=== PATIENT | male | born 1980 | race Caucasian/White ===

== ENCOUNTER 2018-06-15 08:06 | Inpatient (IN) ==
[2018-06-15] MEDS ORDERED: Ondansetron 4 MG/2 ML VIAL IVP ONE ×2 (09:24→14:54)
[2018-06-15] MEDS ORDERED: *HR* FentaNYL (PF) 100 MCG/2 ML VIAL IVP ONE ×2 (09:24→12:05)
--- NOTE | 2018-06-15 09:28 | Emergency Department Note ---
Disposition Clinical Impression: Lip swelling, Cellulitis and abscess of face Disposition: Admitted As Inpatient Condition: Fair Time of Disposition: 12:50 General Adult HPI - General Chief complaint: ED Dental/Oral Stated complaint: Lip Swelling Time Seen by Provider: 06/15/18 08:11 Source: patient Mode of arrival: ambulatory Limitations: no limitations Nursing Notes Reviewed: Yes Vital Signs Reviewed: Yes - History of Present Illness HPI Narrative: Nontoxic-appearing 37-year-old male presents for evaluation of pain and swelling of the lower lip for the past 2 days. He states [place] when he was "poked by a honey locust thorn". He states that he removed the entire thorn intact. That evening he noticed some mild swelling and increased tenderness. Yesterday when he awoke, pain, swelling, and redness is worse. He complains of subjective fevers and chills as well as nausea throughout the day yesterday. Yesterday evening, he attempted to drain the lesion by way of "cutting it with a razor blade". He states he was able to express a small amount of purulent fluid. Today, the pain, swelling, and redness has worsened. Tetanus immunization status is up to date. Onset (ago): day(s) (2) Location: mouth Pain Scale: 8 Quality: aching Consistency: Worsening Improves with: nothing Worsens with: movement, other (Palpation) Associated symptoms: Reports: fever/chills, nausea/vomiting (Nausea without vomiting) Treatments Prior to Arrival: other - Related Data Home Medications Medication Instructions Recorded Confirmed No Known Home Drugs 06/15/18 06/15/18 Allergies Allergy/AdvReac Type Severity Reaction Status Date / Time escitalopram [From Lexapro] Allergy Agitated Verified 06/15/18 16:14 tramadol Allergy Seizure Verified 06/15/18 16:14 bupropion [From Wellbutrin] AdvReac See Verified 06/15/18 16:14 Comments All systems ED: reviewed and negative except as stated. Review of Systems: As Per HPI Constitutional: Reports: as per HPI, fever, chills. Denies: weakness, weight change Eyes: Denies: eye pain, eye discharge, vision change ENT ED: Denies: ear pain, throat pain, dental pain, hearing loss, epistaxis, congestion, dysphagia Cardiovascular: Denies: chest pain, palpitations, dyspnea on exertion, edema, syncope Respiratory: Denies: cough, dyspnea, wheezes, hemoptysis, stridor Gastrointestinal: Denies: abdominal pain, nausea, vomiting, diarrhea, constipation, hematemesis, melena, hematochezia Genitourinary: Denies: urgency, dysuria, frequency, hematuria Musculoskeletal: Denies: back pain, neck pain, arthralgia, myalgia Integumentary: Reports: as per HPI, other (Lower lip pain, swelling, redness). Denies: rash, abrasion, lesions Neurological: Denies: headache, weakness, numbness, paresthesias, confusion, abnormal gait, vertigo Psychiatric: Denies: anxiety, depression, suicidal thoughts, homicidal thoughts, auditory hallucinations, visual hallucinations Endocrine: Denies: fatigue Hematological/Lymphatic: Denies: easy bleeding, easy bruising Allergic/Immunologic: Denies: facial swelling, urticaria Past Medical History - Past Medical History Attestation: Yes The following information was validated with the patient. Source: patient, nursing notes reviewed Medical history: Reports: hypertension Psychiatric history: Reports: no psych history - Social History Smoking Status: Current every day smoker Smokeless Tobacco Status: No Alcohol use: Reports: none Drug use: Reports: marijuana Physical Exam - General Limitations: no limitations General appearance: alert, in no apparent distress - Head Head exam: atraumatic, normocephalic - Expanded Head Exam Head exam physicial: Present: other 1 - Moderate swelling of the lower lip. Diffuse induration without obvious palpable fluctuance. Moderate associated erythema. No discharge or drainage. 2 - Small well approximated incision site noted from where the patient attempted to drain the lesion yesterday. No discharge or drainage currently. - Eye Eye exam: Present: normal appearance, PERRL, EOMI. Absent: nystagmus - ENT ENT exam: mucous membranes moist - Expanded ENT Exam Nose/Mouth: 1 - site of today's incision and drainage. please see procedural note. incision did not cross the vermilion border - Neck Neck exam: Present: normal inspection, full ROM, trachea midline. Absent: tenderness, lymphadenopathy - Chest Chest inspection: Present: normal inspection, symmetric chest wall rise - Extremities Exam Extremities exam: Present: normal inspection, full ROM. Absent: tenderness, pedal edema - Neurological Exam Neurological exam: Present: alert, oriented X3 - Psychiatric Psychiatric exam: Present: normal affect, normal mood - Skin Skin exam: Present: warm, dry Course Course Narrative: 1203: I have paged Dr. Orosco, ENT for further recommendations. 1241: I been notified by the paging Center that they have attempted to page Dr. Orosco 3 times without success. 1248: I have discussed this patient's case with Dr. Michelle Worthy. Dr. Michelle Worthy recommends transfer to the [facility] for further management, as we are having difficulty in obtaining ENT consultation. The patient has been made aware of this plan and is in agreement. 1300: Dr. Orosco returned page. She recommends incision and drainage of the abscess and admission to the hospital service for IV antibiotics, however I had already had a discussion with the patient regarding transfer. The patient is agreeable to staying with ENT consultation here. Consultation had already been made to the [facility]. Immediately after talking to Dr. Orosco, I was contacted by the transfer center nurse, Emeka at the [facility]. She had spoken with Dr. Giraldo, gearman. Lizbeth stated that Dr. Giraldo insisted that we speak to our gearman p rior to transfer. I informed Lizbeth that I have just spoken with Dr. Orosco, and that the patient was comfortable staying here. 1510: I spoke with Dr. Reddy, hospitalist on-call who has agreed to accept the patient to the hospital service with ear nose and throat consult. I spoke with Dr. Bryant, infectious disease specialist. In particular, I spoke with him regarding the questionable need for antifungal's, given the patient was stuck by a honey [place]:. He states that at this time, we will refrain from antifungal's. He states that should the patient deteriorate or symptoms worsen in any way that the hospitalist can feel free to make a formal consult. Vital Signs Temperature 98.6 F 06/15/18 08:09 Pulse Rate 111 06/15/18 08:09 Respiratory Rate 16 06/15/18 08:09 Blood Pressure 155/88 06/15/18 08:09 O2 Sat by Pulse Oximetry 99 06/15/18 08:09 Temperature 98.6 F 06/15/18 09:06 Pulse Rate 111 06/15/18 09:06 Respiratory Rate 18 06/15/18 16:00 Blood Pressure 134/83 06/15/18 16:00 O2 Sat by Pulse Oximetry 99 06/15/18 09:06 Oxygen Delivery Oxygen Delivery Room Air Procedures - Abscess I/D Consent obtained: verbal consent Site: lip Side (if applicable): left Local Anesthetic: lidocaine 1% Amount of Anesthesia Used (mL): 2.0 Technique: incised with #11 blade Amount of fluid: 0 (Miniscule amount of purulent material expressed.) Complications: bleeding Medical Decision Making - Medical Records Medical records reviewed: Yes I reviewed the patient's medical records. - Lab Data Lab results reviewed: Yes I reviewed the patient's lab results. Lab results narrative: Lab Results 06/15/18 06/15/18 06/15/18 Range/Units 09:44 09:44 09:44 WBC 18.3 H (4.3-11.1) K/mcL RBC 4.83 (4.19-5.50) M/mcL Hgb 14.1 (12.9-16.9) g/dL Hct 42.3 (37.5-50.1) % MCV 87.6 (83.0-100.0) fL MCH 29.2 (28.0-33.3) pg MCHC 33.3 (31.6-35.5) g/dL RDW 12.6 (11.5-14.5) % Plt Count 206 (140-400) K/mcL MPV 10.4 (9.4-12.4) fL Immature Gran % 0.5 (0-4) % Seg Neutrophils % 81.5 % Lymphocytes % 6.0 % Monocytes % 11.7 % Eosinophils % 0.1 % Basophils % 0.2 % Neutrophils # 14.9 H (1.6-8.9) K/mcL Lymphocytes # 1.1 (0.6-4.6) K/mcL Monocytes # 2.1 H (0.0-1.3) K/mcL Eosinophils # 0.0 (0.0-0.6) K/mcL Basophils # 0.0 (0.0-0.2) K/mcL ESR 20 H (0-10) mm/hr Sodium 136 (136-145) mEq/L Potassium 3.6 (3.5-5.1) mEq/L Chloride 101 (98-107) mEq/L Carbon Dioxide 28 (23-29) mEq/L BUN 10 (6-20) mg/dL Creatinine 0.81 (0.70-1.30) mg/dL Est GFR ( Amer) > 60 (> 60) Est GFR (Non-Af Amer) > 60 (> 60) BUN/Creatinine Ratio 12 (6-26) Glucose 96 (70-105) mg/dL Calculated Osmolality 281 (280-300) Lactic Acid (0.5-2.2) mmol/L Calcium 9.0 (8.6-10.3) mg/dL C-Reactive Protein 90 H (Less than 10) mg/L 06/15/18 Range/Units 09:44 WBC (4.3-11.1) K/mcL RBC (4.19-5.50) M/mcL Hgb (12.9-16.9) g/dL Hct (37.5-50.1) % MCV (83.0-100.0) fL MCH (28.0-33.3) pg MCHC (31.6-35.5) g/dL RDW (11.5-14.5) % Plt Count (140-400) K/mcL MPV (9.4-12.4) fL Immature Gran % (0-4) % Seg Neutrophils % % Lymphocytes % % Monocytes % % Eosinophils % % Basophils % % Neutrophils # (1.6-8.9) K/mcL Lymphocytes # (0.6-4.6) K/mcL Monocytes # (0.0-1.3) K/mcL Eosinophils # (0.0-0.6) K/mcL Basophils # (0.0-0.2) K/mcL ESR (0-10) mm/hr Sodium (136-145) mEq/L Potassium (3.5-5.1) mEq/L Chloride (98-107) mEq/L Carbon Dioxide (23-29) mEq/L BUN (6-20) mg/dL Creatinine (0.70-1.30) mg/dL Est GFR ( Amer) (> 60) Est GFR (Non-Af Amer) (> 60) BUN/Creatinine Ratio (6-26) Glucose (70-105) mg/dL Calculated Osmolality (280-300) Lactic Acid 0.7 (0.5-2.2) mmol/L Calcium (8.6-10.3) mg/dL C-Reactive Protein (Less than 10) mg/L Result diagrams: 06/15/18 09:44 06/15/18 09:44 Lab Results 06/15/18 06/15/18 06/15/18 Range/Units 09:44 09:44 09:44 WBC 18.3 H (4.3-11.1) K/mcL RBC 4.83 (4.19-5.50) M/mcL Hgb 14.1 (12.9-16.9) g/dL Hct 42.3 (37.5-50.1) % MCV 87.6 (83.0-100.0) fL MCH 29.2 (28.0-33.3) pg MCHC 33.3 (31.6-35.5) g/dL RDW 12.6 (11.5-14.5) % Plt Count 206 (140-400) K/mcL MPV 10.4 (9.4-12.4) fL Immature Gran % 0.5 (0-4) % Seg Neutrophils % 81.5 % Lymphocytes % 6.0 % Monocytes % 11.7 % Eosinophils % 0.1 % Basophils % 0.2 % Neutrophils # 14.9 H (1.6-8.9) K/mcL Lymphocytes # 1.1 (0.6-4.6) K/mcL Monocytes # 2.1 H (0.0-1.3) K/mcL Eosinophils # 0.0 (0.0-0.6) K/mcL Basophils # 0.0 (0.0-0.2) K/mcL ESR 20 H (0-10) mm/hr Sodium 136 (136-145) mEq/L Potassium 3.6 (3.5-5.1) mEq/L Chloride 101 (98-107) mEq/L Carbon Dioxide 28 (23-29) mEq/L BUN 10 (6-20) mg/dL Creatinine 0.81 (0.70-1.30) mg/dL Est GFR ( Amer) > 60 (> 60) Est GFR (Non-Af Amer) > 60 (> 60) BUN/Creatinine Ratio 12 (6-26) Glucose 96 (70-105) mg/dL Calculated Osmolality 281 (280-300) Lactic Acid (0.5-2.2) mmol/L Calcium 9.0 (8.6-10.3) mg/dL C-Reactive Protein 90 H (Less than 10) mg/L 06/15/18 Range/Units 09:44 WBC (4.3-11.1) K/mcL RBC (4.19-5.50) M/mcL Hgb (12.9-16.9) g/dL Hct (37.5-50.1) % MCV (83.0-100.0) fL MCH (28.0-33.3) pg MCHC (31.6-35.5) g/dL RDW (11.5-14.5) % Plt Count (140-400) K/mcL MPV (9.4-12.4) fL Immature Gran % (0-4) % Seg Neutrophils % % Lymphocytes % % Monocytes % % Eosinophils % % Basophils % % Neutrophils # (1.6-8.9) K/mcL Lymphocytes # (0.6-4.6) K/mcL Monocytes # (0.0-1.3) K/mcL Eosinophils # (0.0-0.6) K/mcL Basophils # (0.0-0.2) K/mcL ESR (0-10) mm/hr Sodium (136-145) mEq/L Potassium (3.5-5.1) mEq/L Chloride (98-107) mEq/L Carbon Dioxide (23-29) mEq/L BUN (6-20) mg/dL Creatinine (0.70-1.30) mg/dL Est GFR ( Amer) (> 60) Est GFR (Non-Af Amer) (> 60) BUN/Creatinine Ratio (6-26) Glucose (70-105) mg/dL Calculated Osmolality (280-300) Lactic Acid 0.7 (0.5-2.2) mmol/L Calcium (8.6-10.3) mg/dL C-Reactive Protein (Less than 10) mg/L - Radiology Data Radiology results reviewed: Yes I reviewed the patient's radiology results. Soft Tissue Neck CT 06/15/18 10:03 IMPRESSION: 1. Multiloculated low-attenuation collection in the lower lip and premental soft tissues measuring 2.9 x 1.8 x 1.7 cm consistent with abscess and phlegmon. Cellulitis involving the lower lip and submandibular soft tissues, eccentric to the left. 2. Reactive cervical lymphadenopathy. D/ / 06/15/2018 12:01:02 Danisha Bloom MD / [facility] Interpreting Provider: Danisha Bloom MD
[2018-06-15] MEDS ORDERED: Clindamycin 600 MG/50 ML 600 MG/50 ML IV.SOLN IVPB STA (09:37)
[2018-06-15] MEDS ORDERED: Isovue-370 500 ML INFUS..BTL IV ONE (10:03)
[2018-06-15] MEDS ORDERED: Piperacillin/Tazobactam 3.375 GM in 0.9 % Sodium Chloride Mini Bag 100 ML IVPB ONE (10:03)
[2018-06-15 10:08] LABS: Basophils % 0.2 %; Eosinophils % 0.1 %; Hematocrit 42.3 % (37.5-50.1); Hemoglobin 14.1 g/dL (12.9-16.9); Immature Granulocytes % 0.5 % (0-4); Lymphocytes # 1.1 K/mcL (0.6-4.6); Mean Corpuscular HGB Conc 33.3 g/dL (31.6-35.5); Mean Corpuscular Hemoglobin 29.2 pg (28.0-33.3); Mean Corpuscular Volume 87.6 fL (83.0-100.0); Mean Platelet Volume 10.4 fL (9.4-12.4); Monocytes # 2.1 K/mcL (0.0-1.3); Monocytes % 11.7 %; Neutrophils # 14.9 K/mcL (1.6-8.9); Platelet Count 206 K/mcL (140-400); Red Blood Count 4.83 M/mcL (4.19-5.50); Red Cell Distribution Width 12.6 % (11.5-14.5); Segmented Neutrophils % 81.5 %
[2018-06-15 10:14] LABS: BUN/Creatinine Ratio 12 (6-26); Blood Urea Nitrogen 10 mg/dL (6-20); C-Reactive Protein 90 mg/L (Less than 10); Carbon Dioxide 28 mEq/L (23-29); Chloride 101 mEq/L (98-107); Glucose 96 mg/dL (70-105); Osmolality,Calculated 281 (280-300); Potassium 3.6 mEq/L (3.5-5.1); Sodium 136 mEq/L (136-145); eGFR For Non-African Americans > 60 (> 60)
--- NOTE | 2018-06-15 11:46 | Emergency Department Note ---
Disposition Clinical Impression: Lip swelling, Cellulitis and abscess of face Disposition: Admitted As Inpatient Condition: Fair Referrals: Tony Dobson MD [Primary Care Provider] - Forms: ED Satisfaction Letter General Adult HPI - General Chief complaint: ED Dental/Oral Stated complaint: Lip Swelling Time Seen by Provider: 06/15/18 08:11 Source: patient Mode of arrival: ambulatory Limitations: no limitations - History of Present Illness Location: mouth Pain Scale: 8 Quality: aching Improves with: nothing Worsens with: movement, other (Palpation) Associated symptoms: Reports: fever/chills, nausea/vomiting (Nausea without vomiting) Treatments Prior to Arrival: other - Related Data Allergies Allergy/AdvReac Type Severity Reaction Status Date / Time No Known Allergies Allergy Verified 06/15/18 08:11 Constitutional: Reports: as per HPI, fever, chills. Denies: weakness, weight change Eyes: Denies: eye pain, eye discharge, vision change ENT ED: Denies: ear pain, throat pain, dental pain, hearing loss, epistaxis, congestion, dysphagia Cardiovascular: Denies: chest pain, palpitations, dyspnea on exertion, edema, syncope Respiratory: Denies: cough, dyspnea, wheezes, hemoptysis, stridor Gastrointestinal: Denies: abdominal pain, nausea, vomiting, diarrhea, constipation, hematemesis, melena, hematochezia Genitourinary: Denies: urgency, dysuria, frequency, hematuria Musculoskeletal: Denies: back pain, neck pain, arthralgia, myalgia Integumentary: Reports: as per HPI, other (Lower lip pain, swelling, redness). Denies: rash, abrasion, lesions Neurological: Denies: headache, weakness, numbness, paresthesias, confusion, abnormal gait, vertigo Psychiatric: Denies: anxiety, depression, suicidal thoughts, homicidal thoughts, auditory hallucinations, visual hallucinations Endocrine: Denies: fatigue Hematological/Lymphatic: Denies: easy bleeding, easy bruising Allergic/Immunologic: Denies: facial swelling, urticaria Past Medical History - Past Medical History Medical history: Reports: hypertension Psychiatric history: Reports: no psych history - Social History Smoking Status: Current every day smoker Smokeless Tobacco Status: No Alcohol use: Reports: none Drug use: Reports: marijuana Physical Exam - General Limitations: no limitations General appearance: alert, in no apparent distress Course - Consultations Consultation #1: discussed with [facility] and Dr. Orosco and she will see patient as consult here. We have done the I/D with minimal drainage. Added decadron to the therapy. ADmit to medicine Time: 15:00 Vital Signs Temperature 98.6 F 06/15/18 08:09 Pulse Rate 111 06/15/18 08:09 Respiratory Rate 16 06/15/18 08:09 Blood Pressure 155/88 06/15/18 08:09 O2 Sat by Pulse Oximetry 99 06/15/18 08:09 Temperature 98.6 F 06/15/18 09:06 Pulse Rate 111 06/15/18 09:06 Respiratory Rate 16 06/15/18 09:06 Blood Pressure 155/88 06/15/18 09:06 O2 Sat by Pulse Oximetry 99 06/15/18 09:06 Oxygen Delivery Oxygen Delivery Room Air Medical Decision Making - Lab Data Result diagrams: 06/15/18 09:44 06/15/18 09:44 Lab Results 06/15/18 06/15/18 06/15/18 Range/Units 09:44 09:44 09:44 WBC 18.3 H (4.3-11.1) K/mcL RBC 4.83 (4.19-5.50) M/mcL Hgb 14.1 (12.9-16.9) g/dL Hct 42.3 (37.5-50.1) % MCV 87.6 (83.0-100.0) fL MCH 29.2 (28.0-33.3) pg MCHC 33.3 (31.6-35.5) g/dL RDW 12.6 (11.5-14.5) % Plt Count 206 (140-400) K/mcL MPV 10.4 (9.4-12.4) fL Immature Gran % 0.5 (0-4) % Seg Neutrophils % 81.5 % Lymphocytes % 6.0 % Monocytes % 11.7 % Eosinophils % 0.1 % Basophils % 0.2 % Neutrophils # 14.9 H (1.6-8.9) K/mcL Lymphocytes # 1.1 (0.6-4.6) K/mcL Monocytes # 2.1 H (0.0-1.3) K/mcL Eosinophils # 0.0 (0.0-0.6) K/mcL Basophils # 0.0 (0.0-0.2) K/mcL ESR 20 H (0-10) mm/hr Sodium 136 (136-145) mEq/L Potassium 3.6 (3.5-5.1) mEq/L Chloride 101 (98-107) mEq/L Carbon Dioxide 28 (23-29) mEq/L BUN 10 (6-20) mg/dL Creatinine 0.81 (0.70-1.30) mg/dL Est GFR ( Amer) > 60 (> 60) Est GFR (Non-Af Amer) > 60 (> 60) BUN/Creatinine Ratio 12 (6-26) Glucose 96 (70-105) mg/dL Calculated Osmolality 281 (280-300) Lactic Acid (0.5-2.2) mmol/L Calcium 9.0 (8.6-10.3) mg/dL C-Reactive Protein 90 H (Less than 10) mg/L 06/15/18 Range/Units 09:44 WBC (4.3-11.1) K/mcL RBC (4.19-5.50) M/mcL Hgb (12.9-16.9) g/dL Hct (37.5-50.1) % MCV (83.0-100.0) fL MCH (28.0-33.3) pg MCHC (31.6-35.5) g/dL RDW (11.5-14.5) % Plt Count (140-400) K/mcL MPV (9.4-12.4) fL Immature Gran % (0-4) % Seg Neutrophils % % Lymphocytes % % Monocytes % % Eosinophils % % Basophils % % Neutrophils # (1.6-8.9) K/mcL Lymphocytes # (0.6-4.6) K/mcL Monocytes # (0.0-1.3) K/mcL Eosinophils # (0.0-0.6) K/mcL Basophils # (0.0-0.2) K/mcL ESR (0-10) mm/hr Sodium (136-145) mEq/L Potassium (3.5-5.1) mEq/L Chloride (98-107) mEq/L Carbon Dioxide (23-29) mEq/L BUN (6-20) mg/dL Creatinine (0.70-1.30) mg/dL Est GFR ( Amer) (> 60) Est GFR (Non-Af Amer) (> 60) BUN/Creatinine Ratio (6-26) Glucose (70-105) mg/dL Calculated Osmolality (280-300) Lactic Acid 0.7 (0.5-2.2) mmol/L Calcium (8.6-10.3) mg/dL C-Reactive Protein (Less than 10) mg/L Attestation Statement - Attestation Attestation: I examined this patient and my medical decision-making was reviewed with the Resident Physician. I agree with the documented findings, disposition and treatment plan as described except to the extent set forth below. 37 year old male presents to the ED with complaints of lip swelling and states that this happened while he was putting up his deer stand and then a honey locust thorn entered his lower lip and now in the past 36 hours it has significtn swelling an starting to track down the left side of his face now. we will do IV and CT soft tissue and IV ABX for therapy and will admit
[2018-06-15] MEDS ORDERED: Lidocaine -MPF 1% 5 ML AMPUL INFILT ONE (14:26)
[2018-06-15] MEDS ORDERED: 0.9 % Sodium Chloride 1,000 ML IVC ONE (14:31)
[2018-06-15] MEDS ORDERED: *HR* HYDROmorphone (PF) 1 MG/ML SYRINGE IVP ONE (14:31)
[2018-06-15] MEDS ORDERED: Dexamethasone 4 MG/ML VIAL IVP ONE (14:58)
--- NOTE | 2018-06-15 16:50 | ENT - Consult Note ---
Date of Encounter: 06/15/18 Time of Encounter: 16:47 Assessment and Plan (1) Lip swelling Current Visit: Yes Status: Acute We will continue to monitor for improvement. Small amount of packing was placed but this will likely follow out on its own. Dressing changes to mental area when necessary. (2) Cellulitis and abscess of face Current Visit: Yes Status: Acute Lower lip was indeed a second time in the area of purulent drainage from the lower lip. Please see procedure note. CT scan was reviewed and shows that there is a possible abscess in the anterior lip anterior to the mandible in the submental area. There is no evidence of any extension of this in the submandibular space and there is some slight soft tissue swelling in the submandibular area but there is no extrusion of the tongue or displacement of the soft tissue to compromise of the airway. Recommend admission for IV antibiotics and continued IV steroids. Would recommend Decadron 20 mg IV every 8 hours. This was discussed with the ER staff that was previously treating the patient. Also recommend ID consult for recommendations on the antibiotics and possible antifungal coverage if they believe this is necessary. Patient did have injury from a Thorn that was stuck in the lower lip. At the current time and airway is stable with no evidence of Lucio's Angina on examination at the present time. History of Present Illness Consult date: 06/15/18 Reason for ENT Consult: other (Facial abscess) Requesting physician: Ingrid Worthy History of present illness: Patient is a 37-year-old male that presented to the emergency department secondary to increased swelling of the lower lip. Apparently patient was walking was and had a honey locus thorn See the lip. Thorn was removed. Patient began to have progressive swelling of the lower lip. Swelling became so bad that he did luis the lip himself yesterday afternoon and did get some pus from the lip but it continued to worsen. Patient then presented to the ER for further evaluation and treatment. ENT was consult to by the emergency room staff secondary to the size of the abscess and continued cellulitis that extended down into the neck and submandibular area. CT scan was performed which showed a 2 cm abscess of the lip extending into the premenstrual area. Also soft tissue swelling in the submandibular areas. Airway was patent on scan. Patient denies any dysphasia, no shortness of breath, no dyspnea. Past Med Surg Social Fam HX - Past Medical History Medical history: hypertension Psychiatric history: no psych history - Social History Smoking Status: Current every day smoker Smokeless Tobacco Status: No Alcohol use: none Drug use: marijuana Medications and Allergies No Known Home Drugs 06/15/18 [History] Allergy/AdvReac Type Severity Reaction Status Date / Time escitalopram [From Lexapro] Allergy Agitated Verified 06/15/18 16:14 tramadol Allergy Seizure Verified 06/15/18 16:14 bupropion [From Wellbutrin] AdvReac See Verified 06/15/18 16:14 Comments ENT - ROS - Constitutional Constitutional ROS: no fever(s), no headache(s), no lethargy - EENT Nose, mouth and throat: lip swelling, other (Lip pain, lip swelling), no dysphagia, no sore throat, no throat swelling, no tongue swelling - Cardiovascular Cardiovascular ROS IM: no chest pain, no chest pain at rest, no chest pain with activity, no dyspnea, no edema, no irregular heart rhythm, no radiating jaw, n susy or arm pain, no lightheadedness, no orthopnea, no paroxysmal nocturnal dyspnea, no syncope - Respiratory no cough, no dyspnea, no hemoptysis, no dyspnea on exertion, no wheezing, no stridor - Gastrointestinal Gastrointestinal: no nausea, no vomiting - Neurological Neurological ROS: no numbness, no syncope, no tingling, no weakness ENT Exam Initial Vital Signs Temp Pulse Resp BP Pulse Ox 98.6 F 111 16 155/88 99 06/15/18 08:09 06/15/18 08:09 06/15/18 08:09 06/15/18 08:09 06/15/18 08:09 - General physical appearance well developed, well nourished, moderate distress - Eyes PERRL, normal ocular movement - ENT normal pinna, normal nares, Other (Significant induration of the lower lip with central fluctuance and purulent from [place] area the anterior red lip. Induration measured approximately 5 cm. States he gets soft tissue swelling of the left face into the buccal mucosa, floor mouth is soft mucous membranes are moist no protrusion of the tongue) - Neck no masses, trachea midline, no lymphadectomy, other (Subtle Induration in the submandibular area as there is not tight red) - Respiratory normal expansion, normal respiratory effort - Neurologic CN 2-12 grossly intact, normal sensation, other (Responds appropriately) - Psychiatric oriented to time, oriented to person, oriented to place, speech is normal Exam Initial Vital Signs Temp Pulse Resp BP Pulse Ox 98.6 F 111 16 155/88 99 06/15/18 08:09 06/15/18 08:09 06/15/18 08:09 06/15/18 08:09 06/15/18 08:09 Results - Labs 06/15/18 09:44 06/15/18 09:44 Abnormal lab results WBC 18.3 K/mcL (4.3-11.1) H 06/15/18 09:44 Neutrophils # 14.9 K/mcL (1.6-8.9) H 06/15/18 09:44 Monocytes # 2.1 K/mcL (0.0-1.3) H 06/15/18 09:44 ESR 20 mm/hr (0-10) H 06/15/18 09:44 C-Reactive Protein 90 mg/L (Less than 10) H 06/15/18 09:44 Diabetes panel 06/15/18 Range/Units 09:44 Sodium 136 (136-145) mEq/L Potassium 3.6 (3.5-5.1) mEq/L Chloride 101 (98-107) mEq/L Carbon Dioxide 28 (23-29) mEq/L BUN 10 (6-20) mg/dL Creatinine 0.81 (0.70-1.30) mg/dL Glucose 96 (70-105) mg/dL Calcium 9.0 (8.6-10.3) mg/dL Calcium panel 06/15/18 Range/Units 09:44 Calcium 9.0 (8.6-10.3) mg/dL Pituitary panel 06/15/18 Range/Units 09:44 Sodium 136 (136-145) mEq/L Potassium 3.6 (3.5-5.1) mEq/L Chloride 101 (98-107) mEq/L Carbon Dioxide 28 (23-29) mEq/L BUN 10 (6-20) mg/dL Creatinine 0.81 (0.70-1.30) mg/dL Glucose 96 (70-105) mg/dL Calcium 9.0 (8.6-10.3) mg/dL Adrenal panel 06/15/18 Range/Units 09:44 Sodium 136 (136-145) mEq/L Potassium 3.6 (3.5-5.1) mEq/L Chloride 101 (98-107) mEq/L Carbon Dioxide 28 (23-29) mEq/L BUN 10 (6-20) mg/dL Creatinine 0.81 (0.70-1.30) mg/dL Glucose 96 (70-105) mg/dL Calcium 9.0 (8.6-10.3) mg/dL All other labs normal. Consult Discharge Plan - Plan Referrals: Tony Dobson MD [Primary Care Provider] -
--- NOTE | 2018-06-15 17:04 | ENT - Procedure Note ---
Date of procedure: 06/15/18 Pre-op diagnosis: Lip abscess Post-op diagnosis: same Procedure: Procedure: Incision and drainage of the lower lip abscess Indications for procedure. Patient is a 37-year-old gentleman that had an injury to the lower lip for a any sore Ashvin was stuck in and lip after traveling to the [place]. Patient had progressive swelling and abscess formation as visualized on a CT scan with subsequent swelling that extended into the skin of the submandibular area and midface on the left. Procedure in detail: Risks, benefits, alternatives to this procedure were discussed with the patient in the room. Verbal consent was obtained. 5 mL of 1% lidocaine plain was injected in the submental area with attention paid to inject over the mental nerves where they accepted mandible anteriorly to help create a block to the lower lip. Time was given to allow anesthesia as well as vasoconstriction of this area. At this point a 11 blade was then used to make a stab incision in the area where the abscess of come to a head and there was a small amount of purulent purulence draining from this site. After consideration was made a hemostat was used to open up any loculations through the stab incision. Presents was obtained and culture was taken. Small amount of half- inch iodoform gauze was then placed within the I&D site. This was taped to this skin of the chin and a 4 x 4 gauze was taped over this. Patient tolerated the procedure well. Anesthesia: local Surgeon: Raine Orosco Was there an printing assistant present: No Estimated blood loss (cc): 5
[2018-06-15] MEDS ORDERED: Naloxone 0.4 MG/ML INJ IVP PRN (17:42)
[2018-06-15] MEDS: Ketorolac 30 MG/ML VIAL IVP SCH (17:58)
--- NOTE | 2018-06-15 20:54 | Internal Med History&Physical ---
Date of Encounter: 06/15/18 Time of Encounter: 19:00 Internal Medicine - H&P: HPI Chief complaint: Cellulitis/abscess of the lower lip. Admitted From: Home Plans for Post Hospital Care: Home History of present illness: The patient is a 37-year-old male. It is about 2 days ago when a honey locus thorn pierced his lower lip. It happened, when he was walking in [place]. The thorn was removed. Subsequently, he developed progressing swelling and pain in that area. It was yesterday afternoon, when he lanced the lip himself; got some pus coming. Then, he came to our emergency room for evaluation and treatment. ENT consult was requested. The specialist did incision and drainage of the abscess in the lower lip. The patient has not had any fever or chills recently. Denies chest pain. Denies difficulty breathing. He has not developed any generalized rash secondary to the lesion mentioned above. PAST MEDICAL HX: He was diagnosed with hypertension in the past; does not take any medications for that. PAST FAMILY HX: Positive for hypertension. PAST SOCIAL HX: See below.. REVIEW OF SYSTEMS: All 14 organ systems were reviewed by me with the patient. Positive and pertinent negative findings are listed above. The rest of organ systems is negative. PHYSICAL EXAM: Skin: Free of rash and discoloration. There is quite extensive swelling of his lower lip. There are 2 small cuts in that area; that draining only very small amount of serosanguineous discharge. Eyes: Sclera is white. There is no discharge from eyes. ENMT: Oral/pharyngeal mucosa is normal in appearance. There is no discharge from nose or ears. Respiratory: Normal breath sounds with no crackles and wheezes bilaterally. CV: Heart is regular with no gallop or murmur. GI: Abdomen is flat and soft with no palpable mass or visceromegaly. : There is no tenderness in patient's flanks bilaterally. Neuro exam: He has good strength in upper and lower extremities. He has normal eye movements. Psychiatric: He has normal affect. His thought process is appropriate to the situation. ADDITIONAL DATA: Hemoglobin is 14.1 with a WBC of 18.3 thousand and platelet count of 206,000. He has normal BMP. CRP is 90. CT of head/neck was obtained. It showed multiloculated low-attenuation collection in the lower lip and pre-mental soft tissues measuring 2.9 x 1.8 x 1.7 cm consistent with abscess and phlegmon. It showed cellulitis involving the lower lip and submandibular soft tissues eccentric to the left. It showed reactive cervical lymphadenopathy. A/P: Abscess/cellulitis of lower lip area secondary to piercing with a piece of th orn. See ENT consult. See ENT procedure description. The patient got 1 dose of IV clindamycin. Infectious diseases advised the emergency room physician treatment with IV vancomycin and IV Zosyn at this time. Blood cultures and cultures from the abscess area have been taken. We will keep him on scheduled IV Toradol and when necessary Percocet. History of hypertension. We will be watching his blood pressure closely. Past Med Surg Social Fam HX - Past Medical History Medical history: hypertension Psychiatric history: anxiety, bipolar - Past Surgical History Surgical History: vasectomy - Social History Smoking Status: Current every day smoker Packs per day: 0.25 Smokeless Tobacco Status: No Alcohol use: none Drug use: marijuana Internal Medicine - H&P: Meds No Known Home Drugs 06/15/18 [History] Allergy/AdvReac Type Severity Reaction Status Date / Time escitalopram [From Lexapro] Allergy Agitated Verified 06/15/18 16:14 tramadol Allergy Seizure Verified 06/15/18 16:14 bupropion [From Wellbutrin] AdvReac See Verified 06/15/18 16:14 Comments - Constitutional Vitals: Temp Pulse Resp BP Pulse Ox 97.9 F 105 16 139/102 96 06/15/18 18:24 06/15/18 18:24 06/15/18 18:24 06/15/18 18:24 06/15/18 18:24 General appearance: Present: A&O X 3, no acute distress, answers questions appropriately Exam: xx Internal Med - H&P Results - Labs CBC & Chem 7: 06/15/18 09:44 06/15/18 09:44 Labs: Short CBC 06/15/18 Range/Units 09:44 WBC 18.3 H (4.3-11.1) K/mcL Hgb 14.1 (12.9-16.9) g/dL Hct 42.3 (37.5-50.1) % Plt Count 206 (140-400) K/mcL Neutrophils # 14.9 H (1.6-8.9) K/mcL BMP 06/15/18 09:44 Sodium 136 Potassium 3.6 Chloride 101 Carbon Dioxide 28 BUN 10 Creatinine 0.81 Glucose 96 Calcium 9.0 - Impressions ITS Impressions Soft Tissue Neck CT 06/15/18 10:03 IMPRESSION: 1. Multiloculated low-attenuation collection in the lower lip and premental soft tissues measuring 2.9 x 1.8 x 1.7 cm consistent with abscess and phlegmon. Cellulitis involving the lower lip and submandibular soft tissues, eccentric to the left. 2. Reactive cervical lymphadenopathy. D/ / 06/15/2018 12:01:02 Danisha Bloom MD / [facility] Interpreting Provider: Danisha Bloom MD - Assessment and plan (1) Cellulitis and abscess of face Current Visit: Yes Status: Acute (2) Hx of primary hypertension Current Visit: Yes Status: Inactive - Time Spent With Patient Total time spent is greater than 50% in coordination of care (as documented) at patient's floor/unit and/or counseling patient: 25 - 35 minutes
[2018-06-15] MEDS: Piperacillin/Tazobactam 3.375 GM in 0.9 % Sodium Chloride Mini Bag 100 ML IVPB SCH (21:58)
[2018-06-15] MEDS: *HR* OxyCODONE/APAP 5/325 TABLET PO PRN (22:06)
[2018-06-16] MEDS: Ketorolac 30 MG/ML VIAL IVP SCH ×3 (00:58→12:16)
[2018-06-16] MEDS: *HR* OxyCODONE/APAP 5/325 TABLET PO PRN ×3 (03:04→12:10)
[2018-06-16] MEDS: Piperacillin/Tazobactam 3.375 GM in 0.9 % Sodium Chloride Mini Bag 100 ML IVPB SCH (06:15)
[2018-06-16 12:23] VITALS: BP 115/77
--- NOTE | 2018-06-16 22:51 | Discharge Summary ---
- NOTES TO OUTPATIENT PROVIDER Notes to Outpatient Provider: The patient walked out without any discharge papers/orders. Orders not resulted at time of discharge: Pending orders 06/15/18 09:23 Culture,Blood [BC] Stat 06/15/18 14:30 Culture,Anaerobic [RM] Stat Culture,Body Fluid [RM] Stat Fungal Culture [MYC] Stat Date of Encounter: 06/16/18 Time of Encounter: 11:00 - Discharge Diagnosis (1) Cellulitis and abscess of face Priority: Primary Status: Acute (2) Hx of primary hypertension Priority: Secondary Status: Suspected Hospital course: The patient is a 37-year-old male. I admitted him yesterday with abscess/cellulitis of lower lip. It originated at the time of preaking of his face with a thorn. It was about 2 days before this admission, when he was in [facility]. He had an incision and drainage in the emergency departmentby an ENT specialist. We put him on IV vancomycin and IV Zosyn. We obtained a culture from the wound. When I was doing my morning rounds, I found him to have decreased swelling of his lower lip area. He agrees to stay longer in the hospital to get necessary treatments. Then, suddenly he walked out without any papers/orders from me/nursing staff. Discharge discussed with: other (The patient walked out without any discharge papers/orders.) - Time Spent with Patient Total time spent providing and/or coordinating discharge services: Less than 30 minutes - Discharge Medications Home Medications: No Known Home Drugs 06/15/18 [History] Allergies/Adverse Reactions: Allergy/AdvReac Type Severity Reaction Status Date / Time escitalopram [From Lexapro] Allergy Agitated Verified 06/15/18 16:14 tramadol Allergy Seizure Verified 06/15/18 16:14 bupropion [From Wellbutrin] AdvReac See Verified 06/15/18 16:14 Comments Date of admission: 06/15/18 15:21 Primary care physician: Tony Dobson MD Consults: 06/15/18 14:52 Consult to ENT [CONS] Stat Consulting Provider: ENT Sherita Reason for Consult: lower lip cellulitis/phlegmon Time Notified: 14:53 Call Completed: Yes Discharging clinician: José Srinivasan Anticipated date of discharge: 06/16/18 - Constitutional Vitals: Temp Pulse Resp BP Pulse Ox 98.0 F 86 16 115/77 98 06/16/18 12:21 06/16/18 12:21 06/16/18 12:21 06/16/18 12:21 06/16/18 12:21 General appearance: Present: A&O X 3, no acute distress, answers questions appropriately Exam: xx - Patient Status Disposition: Home, Self-Care Condition: Fair Functional capacity at discharge: independent ambulation Overall status at discharge: patient is progressing back to baseline - Discharge Instructions Follow Up With: Tony Dobson MD [Primary Care Provider] - - Diet and Activity Activity: resume usual activities as tolerated Diet: regular diet - VTE Reasons for not Prescribing Prophylaxis: Treatment not Indicated - Low risk for VTE Deep Vein Thrombosis/Pulmonary Embolism Present on Admission: No
== END 2018-06-16 13:00 | disposition home or self-care (01) | DRG 98 ==
LOC: EMEROOARM 08:06 → 2ANU 15:21 → SUATTDRO 15:21 → 2ANU 17:10
PROVIDERS: ADMIT Internal Medicine; ATTEND Internal Medicine

== ENCOUNTER 2018-06-17 15:10 | Observation (INO) ==
--- NOTE | 2018-06-17 15:32 | Emergency Department Note ---
Disposition Clinical Impression: Cellulitis and abscess of face, Lip swelling Disposition: Admitted As Inpatient Condition: Fair Skin/Abscess/FB HPI Stated complaint: Lip Infection Time Seen by Provider: 06/17/18 15:15 Source: patient Mode of arrival: ambulatory Limitations: no limitations Vital Signs Reviewed: Yes HPI Narrative: Wilmer is a 37 year old male with a past medical history significant for hypertension who presents with chief complaint of lip abscess. History comes primarily from patient. Wilmer was walking in the [place] 4 days ago when he strayed into a thornbush. A thorn pierced his lower lip to the left of midline and broke off into the wound. He extracted this foreign body and attempted to clean the area at home. However over the next 24 hours the affected area became progressively more tender and edematous with exudative discharge from the puncture site. at 48 hours s/p injury he presented to [facility] ED for further evaluation and treatment. At that time he was given IV clindamycin, and his lesion was I/D'd by ENT in the ED. He was then admitted under the hospitalist service for continuation of IV antibiotics (Vanc/Zosyn). He then became aware of a conflict developing between his current significant other and his ex-, so he left AMA the morning after admission to address that issue. Upon satisfactorily resolving this social concern, he returned to [facility] for contin uation of his antibiotic therapy. He endorses subjective fever, chills and night sweats in the interval period after leaving AMA, and he states that he will not leave until his care team directs him for discharge upon being admitted this time. Pt Subjective Complaint: abscess/boil Onset (ago): day(s) Tetanus Up to Date: yes Location: face Severity: moderate Quality: aching, constant Consistency: constant Improves with: none Worsens with: movement Treatments prior to arrival: attempted to drain pus at home Home Medications Medication Instructions Recorded Confirmed RX: No Known Home Drugs 06/15/18 06/17/18 Allergies Allergy/AdvReac Type Severity Reaction Status Date / Time escitalopram [From Lexapro] Allergy Agitated Verified 06/15/18 16:14 tramadol Allergy Seizure Verified 06/15/18 16:14 bupropion [From Wellbutrin] AdvReac See Verified 06/15/18 16:14 Comments Constitutional: Reports: fever, chills, night sweats. Denies: weakness, weight change Eyes: Denies: eye pain ENT ED: Reports: throat pain. Denies: ear pain, dental pain, dysphagia Cardiovascular: Denies: chest pain Respiratory: Denies: as per HPI, cough, dyspnea, sputum production Gastrointestinal: Denies: abdominal pain, nausea, vomiting Neurological: Denies: headache, weakness, numbness Past Medical History - Past Medical History Medical history: Reports: hypertension Surgical history: Reports: vasectomy Psychiatric history: Reports: anxiety, bipolar - Social History Smoking Status: Current every day smoker Smokeless Tobacco Status: No Alcohol use: Reports: none Drug use: Reports: marijuana Physical Exam - General Limitations: no limitations General appearance: alert, in no apparent distress - Head Head exam: atraumatic, normocephalic, normal inspection - Eye Eye exam: Present: normal appearance, PERRL, EOMI - ENT ENT exam: normal oropharynx, other (Obviously infected puncture wound of external left lateral lower lip. Some granulomatous chagnes noted along reciprocal inner mucosal surface. ) - Neck Neck exam: Present: tenderness, other (TTP noted along left body and ramus of mandible extending into soft tissue of anterior cervical region of neck. Submental region is soft and nontender. ). Absent: lymphadenopathy - Chest Chest inspection: Present: normal inspection, symmetric chest wall rise - Respiratory Respiratory exam: Present: normal lung sounds bilaterally. Absent: respiratory distress - Cardiovascular Cardiovascular exam: Present: regular rate, normal rhythm, normal heart sounds. Absent: systolic murmur, rubs - Abdominal Exam Abdominal exam: Present: soft, Non-Tender. Absent: tenderness, distention, guarding, rebound, rigidity - Neurological Exam Neurological exam: Present: alert, oriented X3, CN II-XII intact - Psychiatric Psychiatric exam: Present: normal affect, normal mood Course Course Narrative: Patient's lab results reveal interval improvement of WBC and CRP counts, however both remain elevated and he remains in an obvious clinically infected state. Patient discussed with admitting hospitalist service, who have agreed to dwaine-admit Wilmer Handy for continue IV antibiotic therapy. This plan of care was discussed with the patient who understands the plan of care and is amenable. Vital Signs Temperature 98.0 F 06/17/18 15:25 Pulse Rate 101 06/17/18 15:25 Respiratory Rate 16 06/17/18 15:25 Blood Pressure 150/92 06/17/18 15:25 O2 Sat by Pulse Oximetry 100 06/17/18 15:25 Temperature 98.0 F 06/17/18 15:25 Pulse Rate 101 06/17/18 15:25 Respiratory Rate 16 06/17/18 15:25 Blood Pressure 150/92 06/17/18 15:25 O2 Sat by Pulse Oximetry 100 06/17/18 15:25 Oxygen Delivery Oxygen Delivery Room Air Skin/Abscess/Foreign Body - Lab Data Result diagrams: 06/17/18 16:22 06/17/18 16:22 Lab Results 06/17/18 06/17/18 06/17/18 Range/Units 16:22 16:22 16:22 WBC 12.0 H (4.3-11.1) K/mcL RBC 4.84 (4.19-5.50) M/mcL Hgb 14.0 (12.9-16.9) g/dL Hct 42.8 (37.5-50.1) % MCV 88.4 (83.0-100.0) fL MCH 28.9 (28.0-33.3) pg MCHC 32.7 (31.6-35.5) g/dL RDW 13.1 (11.5-14.5) % Plt Count 282 (140-400) K/mcL MPV 10.5 (9.4-12.4) fL Immature Gran % 0.3 (0-4) % Seg Neutrophils % 71.7 % Lymphocytes % 18.3 % Monocytes % 8.6 % Eosinophils % 0.8 % Basophils % 0.3 % Neutrophils # 8.6 (1.6-8.9) K/mcL Lymphocytes # 2.2 (0.6-4.6) K/mcL Monocytes # 1.0 (0.0-1.3) K/mcL Eosinophils # 0.1 (0.0-0.6) K/mcL Basophils # 0.0 (0.0-0.2) K/mcL Sodium 138 (136-145) mEq/L Potassium 3.6 (3.5-5.1) mEq/L Chloride 104 (98-107) mEq/L Carbon Dioxide 25 (23-29) mEq/L BUN 17 (6-20) mg/dL Creatinine 0.83 (0.70-1.30) mg/dL Est GFR ( Amer) > 60 (> 60) Est GFR (Non-Af Amer) > 60 (> 60) BUN/Creatinine Ratio 20 (6-26) Glucose 121 H (70-105) mg/dL Calculated Osmolality 289 (280-300) Lactic Acid 1.5 (0.5-2.2) mmol/L Calcium 8.9 (8.6-10.3) mg/dL C-Reactive Protein 73 H (Less than 10) mg/L
[2018-06-17] MEDS ORDERED: Piperacillin/Tazobactam 3.375 GM in Water for inj. (sterile) 20 ML 20 ML IVP ONE (15:46)
[2018-06-17] MEDS ORDERED: *HR* FentaNYL (PF) 100 MCG/2 ML VIAL IVP ONE (15:46)
--- NOTE | 2018-06-17 16:04 | Emergency Department Note ---
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 HAZEL ARAGON I have personally performed a face to face evaluation on this patient. I have reviewed and agree with history and physical examination patient management and disposition. Briefly the salient points of the case are as follows: 37-year-old male denying IV drug use walking in the [place] several days ago struck in the lower lip with a foreign from a push noticed pain and redness and swelling. Presented 2 days ago [facility] was worked up with consult on by ENT who did not I&D on his lower lip and admitted for IV antibiotics. Due to social issues patient had a signout AMA. He returned today with some increased pain and swelling and stated definitively that he will stay this time for treatment. Patient getting repeat labs will then contact the hospitalist for admission patient is some mild soft tissue swelling and tenderness with induration on his lower lip but there is no involvement of the pretracheal or submental spaces. There is no airway compromise no trismus no dysphonia or dysphagia. Sporotrichosis is in the differential. Pain Scale: 7 - Related Data Home Medications Medication Instructions Recorded Confirmed No Known Home Drugs 06/15/18 06/17/18 Allergies Allergy/AdvReac Type Severity Reaction Status Date / Time escitalopram [From Lexapro] Allergy Agitated Verified 06/15/18 16:14 tramadol Allergy Seizure Verified 06/15/18 16:14 bupropion [From Wellbutrin] AdvReac See Verified 06/15/18 16:14 Comments Constitutional: Reports: fever, chills, night sweats. Denies: weakness, weight change Eyes: Denies: eye pain ENT ED: Reports: throat pain. Denies: ear pain, dental pain Past Medical History - Past Medical History Medical history: Reports: hypertension Surgical history: Reports: vasectomy Psychiatric history: Reports: anxiety, bipolar - Social History Smoking Status: Current every day smoker Smokeless Tobacco Status: No Alcohol use: Reports: none Drug use: Reports: marijuana Physical Exam - General Limitations: no limitations General appearance: alert, in no apparent distress Course Vital Signs Temperature 98.0 F 06/17/18 15:25 Pulse Rate 101 06/17/18 15:25 Respiratory Rate 16 06/17/18 15:25 Blood Pressure 150/92 06/17/18 15:25 O2 Sat by Pulse Oximetry 100 06/17/18 15:25 Temperature 98.0 F 06/17/18 15:25 Pulse Rate 101 06/17/18 15:25 Respiratory Rate 16 06/17/18 15:25 Blood Pressure 150/92 06/17/18 15:25 O2 Sat by Pulse Oximetry 100 06/17/18 15:25 Oxygen Delivery Oxygen Delivery Room Air
[2018-06-17 16:42] LABS: Basophils % 0.3 %; Eosinophils # 0.1 K/mcL (0.0-0.6); Eosinophils % 0.8 %; Hematocrit 42.8 % (37.5-50.1); Immature Granulocytes % 0.3 % (0-4); Lymphocytes # 2.2 K/mcL (0.6-4.6); Lymphocytes % 18.3 %; Mean Corpuscular HGB Conc 32.7 g/dL (31.6-35.5); Mean Corpuscular Hemoglobin 28.9 pg (28.0-33.3); Mean Corpuscular Volume 88.4 fL (83.0-100.0); Mean Platelet Volume 10.5 fL (9.4-12.4); Monocytes % 8.6 %; Neutrophils # 8.6 K/mcL (1.6-8.9); Platelet Count 282 K/mcL (140-400); Red Blood Count 4.84 M/mcL (4.19-5.50); Red Cell Distribution Width 13.1 % (11.5-14.5); Segmented Neutrophils % 71.7 %
[2018-06-17 17:01] LABS: BUN/Creatinine Ratio 20 (6-26); Blood Urea Nitrogen 17 mg/dL (6-20); C-Reactive Protein 73 mg/L (Less than 10); Calcium 8.9 mg/dL (8.6-10.3); Carbon Dioxide 25 mEq/L (23-29); Chloride 104 mEq/L (98-107); Glucose 121 mg/dL (70-105); Osmolality,Calculated 289 (280-300); Potassium 3.6 mEq/L (3.5-5.1); Sodium 138 mEq/L (136-145); eGFR For Non-African Americans > 60 (> 60)
[2018-06-17] MEDS ORDERED: Naloxone 0.4 MG/ML INJ IVP PRN (17:52)
--- NOTE | 2018-06-17 18:37 | Internal Med History&Physical ---
Date of Encounter: 06/17/18 Time of Encounter: 18:00 Internal Medicine - H&P: HPI Chief complaint: Pain/swelling of lower lip Admitted From: Home Plans for Post Hospital Care: Home History of present illness: The patient is a 37-year-old male. He was hospitalized here recently for treatment of lower lip abscess/cellulitis resulting from piercing his face with a thorn. ENT did incision and drainage of the abscess. We put him on IV vancomycin/IV Zosyn. The patient left AMA on the very next day after the admission, yesterday. He came to emergency room today complaining of severe pain in the area of his lower lip; did not get any pain killers when leaving the hospital. The swelling seems to be a low bit better. He reports to me a low bit of drainage from driss site. Denies fever and chills. PAST MEDICAL HX: He was diagnosed with hypertension in the near past; it was noted treated by him. PAST FAMILY HX: See below.. PAST SOCIAL HX: See below.. REVIEW OF SYSTEMS: All 14 organ systems were reviewed by me with the patient. Positive and pertinent negative findings are listed above. The rest of organ systems is negative. PHYSICAL EXAM: Skin: Free of rash and discoloration. There is a moderate swelling of his lower lip. The interior portion of his lower lip is showing grayish discoloration. Eyes: Sclera is white. There is no discharge from eyes. ENMT: Oral/pharyngeal mucosa is normal in appearance. There is no discharge from nose or ears. Respiratory: Normal breath sounds with no crackles and wheezes bilaterally. CV: Heart is regular with no gallop or murmur. GI: Abdomen is flat and soft with no palpable mass or visceromegaly. : There is no tenderness in patient's flanks bilaterally. Neuro exam: He has good strength in upper and lower extremities. He has normal eye movements. Psychiatric: He has normal affect. His thought process is appropriate to the situation. ADDITIONAL DATA: CBC shows hemoglobin of 14.0 with WBC of 12.0 thousand and normal platelet count. BMP is normal. Lactic acid is 1.5. CRP is 73. A/P: Cellulitis of lower lip secondary to taking with a thorn. We will continue treatment with IV vancomycin/IV Zosyn, as recommended by infectious diseases. Dr. Heidar gave us a telephone advise, when approached by an emergency physician a few days ago. I will put this patient on scheduled IV Toradol. He will be getting when necessary [place] and/or sublingual oxycodone. We will be watching his blood pressure closely. We may advise him to take antihypertensive medication. Past Med Surg Social Fam HX - Past Medical History Medical history: hypertension Psychiatric history: anxiety, bipolar - Past Surgical History Surgical History: vasectomy - Social History Smoking Status: Current every day smoker Smokeless Tobacco Status: No Alcohol use: none Drug use: marijuana - Family History Father Name: Father Age: 64 Living Status: Still Living Hx Family Cardiac Disorders: Yes Internal Medicine - H&P: Meds No Known Home Drugs 06/15/18 [History] Allergy/AdvReac Type Severity Reaction Status Date / Time escitalopram [From Lexapro] Allergy Agitated Verified 06/15/18 16:14 tramadol Allergy Seizure Verified 06/15/18 16:14 bupropion [From Wellbutrin] AdvReac See Verified 06/15/18 16:14 Comments - Constitutional Vitals: Temp Pulse Resp BP Pulse Ox 98.0 F 101 16 150/92 100 06/17/18 15:25 06/17/18 15:25 06/17/18 15:25 06/17/18 15:25 06/17/18 15:25 General appearance: Present: A&O X 3, answers questions appropriately Exam: xx Internal Med - H&P Results - Labs CBC & Chem 7: 06/17/18 16:22 06/17/18 16:22 Labs: Short CBC 06/17/18 Range/Units 16:22 WBC 12.0 H (4.3-11.1) K/mcL Hgb 14.0 (12.9-16.9) g/dL Hct 42.8 (37.5-50.1) % Plt Count 282 (140-400) K/mcL Neutrophils # 8.6 (1.6-8.9) K/mcL BMP 06/17/18 16:22 Sodium 138 Potassium 3.6 Chloride 104 Carbon Dioxide 25 BUN 17 Creatinine 0.83 Glucose 121 H Calcium 8.9 - Assessment and plan (1) Cellulitis of lip Current Visit: Yes Status: Acute (2) Hx of primary hypertension Current Visit: No Status: Suspected - Time Spent With Patient Total time spent is greater than 50% in coordination of care (as documented) at patient's floor/unit and/or counseling patient: - VTE Reasons for not Prescribing Prophylaxis: Treatment not Indicated - Low risk for VTE Deep Vein Thrombosis/Pulmonary Embolism Present on Admission: No
[2018-06-17] MEDS: Ketorolac 30 MG/ML VIAL IVP SCH (18:44)
[2018-06-17] MEDS: *HR* OxyCODONE Immed Rel 5 MG TABLET PO PRN (20:08)
[2018-06-18] MEDS: Ketorolac 30 MG/ML VIAL IVP SCH ×3 (00:43→12:33)
[2018-06-18] MEDS: Piperacillin/Tazobactam 3.375 GM in 0.9 % Sodium Chloride Mini Bag 100 ML IVPB SCH ×3 (00:43→15:57)
[2018-06-18] MEDS: *HR* HYDROcodone/Acet 7.5/325 mg TABLET PO PRN ×2 (01:06→09:05)
[2018-06-18] MEDS: *HR* OxyCODONE Immed Rel 5 MG TABLET PO PRN ×2 (14:07→20:07)
--- NOTE | 2018-06-18 22:50 | Internal Med Progress Note ---
Hospitalist Progress Note - Encounter Date of Encounter: 06/18/18 Time of Encounter: 16:00 - Subjective Interval History: SUBJECTIVE: The patient feels better. He has less pain and swelling in the area of her lower lip. He is on regular diet. Denies fever and chills. OBJECTIVE: Skin: Free of rash and discoloration. There is mild/moderate swelling of the upper portion of lower lip. I cannot feel any fluctuation there. ENMT: Oral/pharyngeal mucosa is normal in appearance. Eyes: Sclera is white. There is no discharge from eyes. Respiratory: Normal breath sounds; no crackles or wheezes. CV: Heart is regular; no gallop or murmur. GI: Abdomen is soft and not tender. There is no palpable mass or visceromegaly. Neuro: There is no focal deficits. ADDITIONAL DATA: WBC at admission was 12.0 thousand. I am ordering CBC and BMP for tomorrow morning. ASSESSMENT AND PLAN: Cellulitis of lower lip. Getting progressively better. We will continue IV vancomycin/IV Zosyn. The patient is on scheduled IV Toradol. He will be taking have when necessary [place] and/or Roxicodone. History of hypertension. Currently his blood pressure is under control without any antihypertensives. DISPOSITION: I anticipate his discharge tomorrow on oral Zyvox/Augmentin. - Exam Vitals: Temp Pulse Resp BP Pulse Ox 98.9 F 72 12 128/83 97 06/18/18 19:55 06/18/18 19:55 06/18/18 19:55 06/18/18 19:55 06/18/18 19:55 Exam: xx - Assessment and Plan (1) Cellulitis of lip Current Visit: Yes Status: Acute (2) Hx of primary hypertension Current Visit: No Status: Suspected - Time Spent with Patient Total time spent is greater than 50% in coordination of care (as documented) at patient's floor/unit and/or counseling patient: 25 - 35 minutes Plan of Care Discussed with: patient Internal Medicine: Result - Labs CBC & Chem 7: 06/17/18 16:22 06/17/18 16:22 - VTE Reasons for not Prescribing Prophylaxis: Treatment not Indicated - Low risk for VTE Deep Vein Thrombosis/Pulmonary Embolism Present on Admission: No Consult Discharge Plan - Plan Referrals: Tony Dobson MD [Primary Care Provider] -
[2018-06-19] MEDS: Piperacillin/Tazobactam 3.375 GM in 0.9 % Sodium Chloride Mini Bag 100 ML IVPB SCH ×2 (01:04→08:32)
[2018-06-19 02:52] LABS: Basophils % 0.7 %; Eosinophils # 0.5 K/mcL (0.0-0.6); Eosinophils % 8.4 %; Hematocrit 43.9 % (37.5-50.1); Hemoglobin 14.3 g/dL (12.9-16.9); Immature Granulocytes % 0.9 % (0-4); Lymphocytes # 2.1 K/mcL (0.6-4.6); Lymphocytes % 36.2 %; Mean Corpuscular HGB Conc 32.6 g/dL (31.6-35.5); Mean Platelet Volume 9.9 fL (9.4-12.4); Monocytes # 0.5 K/mcL (0.0-1.3); Monocytes % 9.3 %; Neutrophils # 2.6 K/mcL (1.6-8.9); Platelet Count 297 K/mcL (140-400); Red Blood Count 4.93 M/mcL (4.19-5.50); Red Cell Distribution Width 12.9 % (11.5-14.5); Segmented Neutrophils % 44.5 %
[2018-06-19] MEDS: *HR* OxyCODONE Immed Rel 5 MG TABLET PO PRN ×2 (02:57→10:24)
[2018-06-19 03:10] LABS: BUN/Creatinine Ratio 23 (6-26); Blood Urea Nitrogen 18 mg/dL (6-20); Calcium 8.6 mg/dL (8.6-10.3); Carbon Dioxide 27 mEq/L (23-29); Chloride 104 mEq/L (98-107); Glucose 97 mg/dL (70-105); Osmolality,Calculated 284 (280-300); Potassium 4.3 mEq/L (3.5-5.1); Sodium 136 mEq/L (136-145); eGFR For Non-African Americans > 60 (> 60)
[2018-06-19] MEDS: *HR* HYDROcodone/Acet 7.5/325 mg TABLET PO PRN (08:33)
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
[2018-06-19 10:40] VITALS: BP 125/85
[2018-06-19] MEDS ORDERED: Aminoglycoside Consult 1 EACH MC ONE (13:07)
== END 2018-06-19 13:08 | disposition home or self-care (01) ==
LOC: EMEROOARM 15:10 → 3ANU 15:10 → SUATTDRO 17:21 → 3ANU 17:51
PROVIDERS: ADMIT Internal Medicine; ATTEND Internal Medicine

== ENCOUNTER 2019-05-16 20:18 | Observation (INO) ==
[2019-05-16] MEDS ORDERED: Isovue-370 500 ML BOTTLE IVP ONE (20:35)
[2019-05-16] MEDS: 0.9 % Sodium Chloride 1,000 ML IVC SCH ×2 (20:50→22:11)
[2019-05-16 21:00] LABS: Basophils % 0.2 %; Eosinophils # 0.1 K/mcL (0.0-0.6); Eosinophils % 0.7 %; Hematocrit 37.9 % (37.5-50.1); Hemoglobin 12.7 g/dL (12.9-16.9); Immature Granulocytes % 0.3 % (0-4); Mean Corpuscular HGB Conc 33.5 g/dL (31.6-35.5); Mean Corpuscular Hemoglobin 29.6 pg (28.0-33.3); Mean Corpuscular Volume 88.3 fL (83.0-100.0); Mean Platelet Volume 10.1 fL (9.4-12.4); Monocytes # 1.3 K/mcL (0.0-1.3); Monocytes % 11.4 %; Neutrophils # 7.8 K/mcL (1.6-8.9); Platelet Count 215 K/mcL (140-400); Red Blood Count 4.29 M/mcL (4.19-5.50); Red Cell Distribution Width 13.2 % (11.5-14.5); Segmented Neutrophils % 69.4 %; White Blood Count 11.3 K/mcL (4.3-11.1)
[2019-05-16 21:07] LABS: Prothrombin Time 11.4 Seconds (9.4-12.1)
[2019-05-16 21:10] LABS: Activated Partial Thrombo Time 28.2 Seconds (26.0-36.0)
[2019-05-16 21:22] LABS: Alanine Aminotransferase 37 Units/L (7-52); Albumin 4.2 g/dL (3.5-5.7); Albumin/Globulin Ratio 1.5 (1.1-2.2); Alkaline Phosphatase 46 Units/L (34-104); Aspartate Amino Transferase 38 Units/L (13-39); BUN/Creatinine Ratio 16 (6-26); Bilirubin,Direct 0.1 mg/dL (0.0-0.2); Bilirubin,Indirect 0.4 mg/dL (0.0-1.2); Bilirubin,Total 0.5 mg/dL (0.3-1.0); Blood Urea Nitrogen 13 mg/dL (6-20); Calcium 9.1 mg/dL (8.6-10.3); Carbon Dioxide 29 mEq/L (23-29); Chloride 100 mEq/L (98-107); Globulin 2.8 g/dL (2.4-3.5); Glucose 112 mg/dL (70-105); Magnesium 2.1 mg/dL (1.6-2.6); Osmolality,Calculated 287 (280-300); Phosphorous 1.5 mg/dL (2.7-4.5); Potassium 3.8 mEq/L (3.5-5.1); Sodium 138 mEq/L (136-145); Troponin I < 0.03 ng/mL (< 0.04); eGFR For African Americans > 60 (> 60); eGFR For Non-African Americans > 60 (> 60)
[2019-05-16] MEDS ORDERED: Piperacillin/Tazobactam 3.375 GM in 0.9 % Sodium Chloride Mini Bag 100 ML IVPB ONE (21:45)
[2019-05-16 23:29] LABS: Amphetamine Screen,Urine Negative ng/mL (Cutoff=1000); Barbiturate Screen,Urine Negative ng/mL (Cutoff=200); Benzodiazepines Screen,Urine Negative ng/mL (Cutoff=200); Cannabinoid Screen,Urine Negative ng/mL (Cutoff = 50); Cocaine Screen,Urine Negative ng/mL (Cutoff= 300); Opiate Screen,Urine Negative ng/mL (Cutoff=300); Phencyclidine Screen,Urine Negative ng/mL (Cutoff=25)
[2019-05-16] MEDS ORDERED: Acetaminophen 325 MG TABLET PO PRN (23:29)
[2019-05-16] MEDS ORDERED: Naloxone 0.4 MG/ML INJ IVP PRN (23:29)
[2019-05-16] MEDS ORDERED: Ringers Solution, Lactated 1,000 ML IVC SCH (23:30)
[2019-05-16] MEDS ORDERED: *HR* FentaNYL (PF) 100 MCG/2 ML VIAL IVP ONE (23:35)
[2019-05-17] MEDS: Ketorolac 30 MG/ML VIAL IVP PRN ×2 (03:58→10:36)
[2019-05-17] MEDS: *HR* Heparin 5,000 UNIT/ML VIAL SQ SCH ×2 (05:41→15:37)
[2019-05-17] MEDS: *HR* OxyCODONE Immed Rel 5 MG TABLET PO PRN ×2 (11:09→20:04)
[2019-05-17] MEDS: Piperacillin/Tazobactam 3.375 GM in 0.9 % Sodium Chloride Mini Bag 100 ML IVPB SCH ×2 (13:32→19:03)
[2019-05-18] MEDS: *HR* OxyCODONE Immed Rel 5 MG TABLET PO PRN ×5 (00:09→21:13)
[2019-05-18] MEDS: Piperacillin/Tazobactam 3.375 GM in 0.9 % Sodium Chloride Mini Bag 100 ML IVPB SCH ×2 (04:23→11:07)
[2019-05-18] MEDS: *HR* Heparin 5,000 UNIT/ML VIAL SQ SCH ×2 (04:24→18:15)
[2019-05-18] MEDS ORDERED: Lidocaine -MPF 2% 10 ML AMPUL INFILT ONE (08:16)
[2019-05-18] MEDS: Ketorolac 30 MG/ML VIAL IVP PRN ×2 (11:12→18:19)
[2019-05-19] MEDS: *HR* OxyCODONE Immed Rel 5 MG TABLET PO PRN ×3 (01:07→09:57)
[2019-05-19] MEDS: *HR* Heparin 5,000 UNIT/ML VIAL SQ SCH (02:33)
[2019-05-19] MEDS: Ketorolac 30 MG/ML VIAL IVP PRN (05:53)
[2019-05-19 06:39] VITALS: BP 114/75
[2019-05-19] MEDS ORDERED: Aminoglycoside Consult 1 EACH MC ONE (15:02)
== END 2019-05-19 15:03 | disposition home or self-care (01) ==
LOC: EMEROOARM 20:18 → 3ANU 20:18
PROVIDERS: ADMIT Internal Medicine; ATTEND Internal Medicine

== ENCOUNTER 2020-12-16 23:54 | Inpatient (IN) ==
[2020-12-17 00:25] LABS: Bilirubin,Urine Negative (Negative); Blood,Urine Negative (Negative); Clarity,Urine Clear (Clear); Color,Urine Light-Yellow (Yellow); Glucose,Urine (UA) Normal (Normal); Ketones,Urine Negative (Negative); Leukocyte Esterase,Urine Negative (Negative); Nitrite,Urine Negative (Negative); Protein,Urine Negative (Neg-Trace); Specific Gravity,Urine 1.018 (1.010-1.025); Urobilinogen,Urine Normal (Normal)
[2020-12-17 00:33] LABS: Basophils % 0.5 %; Eosinophils # 0.3 K/mcL (0.0-0.6); Eosinophils % 3.4 %; Hematocrit 47.3 % (37.5-50.1); Hemoglobin 15.7 g/dL (12.9-16.9); Immature Granulocytes % 0.5 % (0-4); Lymphocytes # 2.4 K/mcL (0.6-4.6); Lymphocytes % 28.1 %; Mean Corpuscular HGB Conc 33.2 g/dL (31.6-35.5); Mean Corpuscular Hemoglobin 29.4 pg (28.0-33.3); Mean Corpuscular Volume 88.6 fL (83.0-100.0); Mean Platelet Volume 11.1 fL (9.4-12.4); Monocytes # 0.9 K/mcL (0.0-1.3); Monocytes % 10.7 %; Neutrophils # 4.9 K/mcL (1.6-8.9); Platelet Count 219 K/mcL (140-400); Red Blood Count 5.34 M/mcL (4.19-5.50); Red Cell Distribution Width 12.3 % (11.5-14.5); Segmented Neutrophils % 56.8 %; White Blood Count 8.6 K/mcL (4.3-11.1)
[2020-12-17 00:37] LABS: Amphetamine Screen,Urine Negative ng/mL (Cutoff=1000); Barbiturate Screen,Urine Negative ng/mL (Cutoff=200); Benzodiazepines Screen,Urine Negative ng/mL (Cutoff=200); Cannabinoid Screen,Urine Negative ng/mL (Cutoff = 50); Cocaine Screen,Urine Negative ng/mL (Cutoff= 300); Opiate Screen,Urine Negative ng/mL (Cutoff=300); Phencyclidine Screen,Urine Negative ng/mL (Cutoff=25)
[2020-12-17 00:48] LABS: Acetaminophen < 10 mcg/mL (10-20); BUN/Creatinine Ratio 17 (6-26); Blood Urea Nitrogen 16 mg/dL (6-20); Calcium 9.2 mg/dL (8.6-10.3); Carbon Dioxide 24 mEq/L (23-29); Chloride 104 mEq/L (98-107); Chol/HDL Ratio 2.3 (0-4.9); Cholesterol 123 mg/dL (< 200); Ethanol < 10 mg/dL (Less than 10); Glucose 101 mg/dL (70-105); HDL Cholesterol 54 mg/dL (40-59); LDL Cholesterol,Calculated 54 mg/dL (< 100); Osmolality,Calculated 285 (280-300); Salicylate < 2.5 mg/dL (15.0-30.0); Sodium 137 mEq/L (136-145); Triglycerides 74 mg/dL (< 150); eGFR For African Americans > 60 (> 60); eGFR For Non-African Americans > 60 (> 60)
[2020-12-17 03:51] LABS: Adenovirus Not Detected (Not Detect); Bordetella Pertussis Not Detected (Not Detect); Chlamydophila pneumoniae Not Detected (Not Detect); Coronavirus 229E Not Detected (Not Detect); Coronavirus HKU1 Not Detected (Not Detect); Coronavirus NL63 Not Detected (Not Detect); Coronavirus OC43 Not Detected (Not Detect); Human Metapneumovirus Not Detected (Not Detect); Human Rhinovirus/Enterovirus Not Detected (Not Detect); Influenza A Subtype 2009 H1 Not Detected (Not Detect); Influenza B Not Detected (Not Detect); Mycoplasma pneumoniae Not Detected (Not Detect); Parainfluenza Virus 1 Not Detected (Not Detect); Parainfluenza Virus 2 Not Detected (Not Detect); Parainfluenza Virus 3 Not Detected (Not Detect); Parainfluenza Virus 4 Not Detected (Not Detect); Respiratory Syncytial Virus Not Detected (Not Detect); SARS-CoV-2 Not Detected (Not Detect)
[2020-12-17] MEDS ORDERED: hydrOXYzine pamoate 25 MG CAPSULE PO PRN (04:12)
[2020-12-17] MEDS ORDERED: traZODone 50 MG TABLET PO PRN (04:12)
[2020-12-17] MEDS ORDERED: *HR* LORazepam 2 MG/ML VIAL IM PRN (04:12)
[2020-12-17] MEDS ORDERED: Haloperidol Lactate 5 MG/ML VIAL IM PRN (04:12)
[2020-12-17] MEDS ORDERED: Acetaminophen 325 MG TABLET PO PRN (04:12)
[2020-12-17] MEDS ORDERED: haloperidoL 5 MG TABLET PO PRN (04:12)
[2020-12-17] MEDS ORDERED: *HR* LORazepam 1 MG TABLET PO PRN (04:12)
[2020-12-17 05:09] LABS: Estimated Average Glucose 117 mg/dl; Hemoglobin A1C 5.7 %
[2020-12-17 11:22] LABS: Alanine Aminotransferase 14 Units/L (7-52); Albumin 4.8 g/dL (3.5-5.7); Albumin/Globulin Ratio 1.8 (1.1-2.2); Alkaline Phosphatase 46 Units/L (34-104); Aspartate Amino Transferase 15 Units/L (13-39); Bilirubin,Direct 0.1 mg/dL (0.0-0.2); Bilirubin,Indirect 0.3 mg/dL (0.0-1.0); Bilirubin,Total 0.4 mg/dL (0.3-1.0); Globulin 2.6 g/dL (2.4-3.5); Total Protein 7.4 g/dL (6.4-8.9)
[2020-12-17] MEDS ORDERED: Divalproex (12 HR) 500 MG TABLET PO SCH (21:00)
[2020-12-18 09:01] VITALS: BP 120/87
[2020-12-18] MEDS ORDERED: Divalproex (24 HR) 500 MG TABLET PO SCH (21:00)
== END 2020-12-18 16:15 | disposition home or self-care (01) | DRG 753 ==
LOC: EMEROOARM 23:54 → 1ANU 12-17 04:10
PROVIDERS: ADMIT Psychiatry & Neurology Psychiatry; ATTEND Psychiatry & Neurology Psychiatry